=== PATIENT | female | born 1995 | race Two or more races ===

== ENCOUNTER 2024-11-10 14:07 | Outpatient (AMB) | payer BC, SELFPAY ==
[2024-11-10 14:44] VITALS: BP 132/80; PULSE 101; RESP 20; TEMP 36.6; O2SAT 96; BMI 36.3
--- NOTE | 2024-11-10 14:44 | AMB.GYNCLNOT ---
Vital Signs 11/10/24 14:44 Height 1.63 m Height Method Stated Weight 96.162 kg Weight Measurement Method Standing Scale BMI 36.3 BP 132/80 H Blood Pressure Source Automatic Cuff Blood Pressure Location Left Upper Arm Position Sitting Respiration 20 Pulse 101 H Pulse Source Monitor Temp 98 F Temp Source Oral Pulse Oximetry (%) 96 Oxygen Delivery Method Room Air Allergies/Home Meds Allergies & Medications Allergies No Known Allergies Allergy (Verified 11/10/24 14:45) Medication Reconciliation No Known Home Medications 11/10/24 [History Confirmed 11/10/24] Intake Visit Data Collection New Patient or Established: New Patient (never been to [facility]) Reason for Visit:: IUD REMOVAL CONSULT Seen by Clinical Staff ONLY (RN/MA): No Shortage Worker Required: No Do You Feel Safe at Home: Yes Authorities Contacted: N/A PCP or OBGYN visit in last 3 months: Yes Hx Now: No Are you currently on any form of Control: Yes Last menstrual period: 10/16/24 Pain Present Currently: No Pain Scale Used: Herrera-Giang/Numerical Pain scale:: 0 Smoking Status Smoking Status: Never smoker 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 1. Little interest or pleasure in doing things: not at all 2. Feeling down, depressed, or hopeless: not at all Total score: 0 PHQ-9 3. Trouble falling or staying asleep, or sleeping too much: Not at all 4. Feeling tired or having little energy: Not at all 5. Poor appetite or overeating: Not at all 6. Feeling bad about yourself - or that you are a failure or have let yourself or your family down: Not at all 7. Trouble concentrating on things, such as reading the newspaper or watching television: Not at all 8. Moving or speaking so slowly that other people could have noticed? - Or the opposite - being so fidgety or restless that you have been moving around a lot more than usual: not at all 9. Thoughts that you would be better off or of hurting yourself in some way: Not at all Total score: 0 Source: Developed by Drs. Zhou Zimmer, Carmen Ramires, Justin Murphy and colleagues, with an educational brittani from [employer]. Depression screen completed yes Social History Living Situation History Marital Status: Lives With: Family Housing: House Tobacco History Smoking Status: Never smoker Second Hand Smoke Exposure: No Alcohol History Alcohol Intake: Never Domestic Abuse History Do You Feel Safe at Home: Yes History of Present Illness HPI Narrative 28-year-old 2 para 1 for IUD removal. Patient had the ParaGard IUD for 9 years. Denies aches. She has had no problems with the IUD at all. Patient desires . Her last period October 16, 2024. Reports menses are every month moderate in flow. Last Pap was 2022 it was normal, no history of abnormal Paps. 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 She denies social habits. Denies surgeries. Denies existence chronic illness. 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 vagina pink, leukorrhea. parrous cervix. IUD string seen in cx General Limitations: no limitations General Appearance: alert, in no apparent distress, comfortable, cooperative, healthy appearing, well developed and well groomed Head Head exam: atraumatic, normocephalic and normal inspection Chest Chest inspection: Present normal inspection and symmetric chest wall rise Resp Respiratory exam: Present normal lung sounds bilaterally Card Cardiovascular exam: Present regular rate, normal rhythm and normal heart sounds Abdominal Abdominal exam: Present soft and normal bowel sounds Psych Psychiatric exam: Present normal affect and normal mood Office Procedures OB Clinic LOC & Office Proc's Nursing/Assessment Patient Status: Established Patient OB Clinic Nursing Assessment: Medication Reconciliation, Update PMH in EMR and Vital Signs OB Clinic Coordination of Care: Complex Care and Chronic Disease 1-5, Consent,records obtained, informed consent, Education Simp Pt/Fam, Lab and Imaging orders, Results/Orders obtained and Staff clarify orders Miscellaneous Interventions: Pelvic no cultures Established Patient Charge Established Patient Point Assignment: 115 In Clinic Procedures REMOVAL OF ANY IUD DEVICE: Yes Assessment & Plan Diagnosis / Problem List (1) Encounter for IUD removal: Status: Acute Plan consent for IUD removal. discuss procedure. start PNV with folic acid. discuss diet and exercise. preconception counseling. 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 for removal only) IUD Lot and Exp: Lot#: Expiration date: Procedure Notes:: Patient placed in lithotomy. speculum placed. Perineum clean no lesions. Vagina pink no abnormal discharge. Parous cervix. IUD string seen in cervix. ParaGard IUD was removed with ring forcep intact. IUD was shown to patient. No bleeding noted.
== END 2024-11-10 14:58 | disposition home or self-care (01) ==
LOC: HODSOBC 14:07
PROVIDERS: PCP Advanced Practice Midwife; Referring Provider Advanced Practice Midwife; Supervising Provider Advanced Practice Midwife; Visit Provider Advanced Practice Midwife
DX: Z30.432 Encounter for removal of intrauterine contraceptive device (principal)
CPT/HCPCS: 58301